=== PATIENT | male | born 2000 | race American Indian/Alaskan Native ===

== ENCOUNTER 2022-03-13 16:09 | Emergency (ER) | payer SELFPAY ==
[2022-03-13 16:21] VITALS: BP 124/77
--- NOTE | 2022-03-15 13:36 | Electrocardiograph Report ---
[facility] Test Date: 2022-03-13 Test Time: 16:15:38 Pat Name: SUMAN COOLEY Department: Room: Gender: M [employer] Operator: DEE : 2000 Requested By: CHEKO MO Order Number: [id number] Reading MD: Lary Myers Measurements Intervals [place] Rate: 106 P: 83 TN: 116 QRS: 84 QRSD: 76 T: 64 QT: 339 QTc: 451 Interpretive Statements Sinus tachycardia Right atrial enlargement No previous ECG available for comparison Electronically Signed On 03-15-2022 13:36:43 EDT by Lary Myers
== END 2022-03-14 04:30 | disposition left against medical advice (07) ==
LOC: ED 16:09
DX: R07.9 Chest pain, unspecified (principal); Z53.21 Procedure and treatment not carried out due to patient leaving prior to being seen by health care provider
CPT/HCPCS: 93005